=== PATIENT | female | born 1995 | race Caucasian/White ===

== ENCOUNTER 2018-10-16 05:01 | Inpatient (IN) ==
[2018-10-16] MEDS ORDERED: PEPCID IV PRN (05:09)
[2018-10-16] MEDS ORDERED: STADOL IV PRN (05:09)
[2018-10-16] MEDS ORDERED: REGLAN PO ONE (05:09)
[2018-10-16] MEDS ORDERED: TYLENOL PO PRN (05:09)
[2018-10-16] MEDS ORDERED: PEPCID PO PRN (05:09)
[2018-10-16] MEDS ORDERED: KEFZOL 1 GM/D5W 1 GM/50 ML IVPB IV PRN (05:09)
[2018-10-16] MEDS ORDERED: PEPCID PO ONE (05:09)
[2018-10-16] MEDS ORDERED: LR 500 ML IV ONE (05:09)
[2018-10-16] MEDS ORDERED: ZOFRAN IV PRN (05:09)
[2018-10-16] MEDS ORDERED: SODIUM CHLORIDE 0.9% INJ SCH (05:15)
[2018-10-16] MEDS ORDERED: PITOCIN 30 UNITS/NS 30 UNIT/500 ML IV.SOLN IV SCH ×2 (05:15→11:45)
[2018-10-16] MEDS: LR 1,000 ML IV SCH ×2 (05:50→08:37)
[2018-10-16 06:27] LABS: BASO# 0.02 X1000 (0.0-0.2); BASO% 0.2 % (0.0-0.8); EOS# 0.09 X1000 (0.0-0.7); HEMATOCRIT 32.5 % (37.0-47.0); HEMOGLOBIN 10.6 g/dL (12.0-16.0); IMM GRAN# 0.04 X1000 (0.0-0.04); IMM GRAN% 0.4 % (0.0-0.5); LYMPH# 2.18 X1000 (1.2-3.4); LYMPH% 23.6 % (20.5-51.1); MCH 29.8 PG (27-31); MCHC 32.6 g/dL (33-37); MCV 91.3 FL (81-99); MONO# 0.73 X1000 (0.11-0.59); MONO% 7.9 % (1.7-9.3); MPV 11.5 FL (7.4-10.4); NEUT# 6.19 X1000 (1.4-6.5); NEUT% 66.9 % (42.2-75.2); PLT 250 X1000 (130-400); RBC 3.56 XMIL (4.2-5.4); RDW 14.3 % (11.5-14.5); WBC 9.25 X1000 (4.8-10.8)
[2018-10-16] MEDS ORDERED: NAROPIN 0.2% INJ ONE (08:45)
[2018-10-16] MEDS ORDERED: FENTANYL-BUPIV-NS 2 MCG-0.1% 200 ML EPIDURAL SCH (09:00)
[2018-10-16] MEDS ORDERED: HYDROXYZINE IM PRN (11:31)
[2018-10-16] MEDS ORDERED: PITOCIN IM PRN (11:31)
[2018-10-16] MEDS ORDERED: BOOSTRIX VACCINE IM ONE (11:31)
[2018-10-16] MEDS ORDERED: XYLOCAINE-MPF 1% INJ PRN (11:31)
[2018-10-16] MEDS ORDERED: PERI MEDS (DERMOPLAST/NUPERCAINAL/TUCKS) MISC PRN (11:31)
[2018-10-16] MEDS ORDERED: ATARAX PO PRN (11:31)
[2018-10-16] MEDS ORDERED: M-M-R II VACCINE SUBQ ONE (11:31)
[2018-10-16] MEDS ORDERED: CYTOTEC PO PRN (11:31)
[2018-10-16] MEDS ORDERED: AMBIEN PO PRN (11:31)
[2018-10-16] MEDS ORDERED: BENADRYL PO PRN (11:31)
[2018-10-16] MEDS ORDERED: BENADRYL IV PRN (11:31)
[2018-10-16] MEDS ORDERED: PERCOCET-5 PO PRN (11:31)
[2018-10-16] MEDS ORDERED: PERCOCET-10 PO PRN (11:31)
[2018-10-16] MEDS ORDERED: PITOCIN 20 UNITS/NS 20 UNITS/1,000 ML IV.SOLN IV SCH (13:00)
--- NOTE | 2018-10-16 14:12 | OPERATIVE NOTE ---
PROCEDURE DATE: 10/16/2018 DELIVERY NOTE: Ms. Guzmán is a 23-year-old, 2, para 1, at 39 weeks and 3 days, care with Dr. Patterson, who presented for elective induction. The patient's cervix was 2 cm on arrival. She progressed to complete-complete and +3 with artificial rupture of membranes, clear fluid, and Pitocin augmentation under epidural anesthesia. She had a spontaneous vaginal delivery of an male over an intact perineum. Nuchal cord x1 was reduced at the perineum. The shoulders were delivered. The infant was bulb suctioned. The cord was clamped and cut, and he was handed to his mother. There were 9 and 9 Apgars, nursery. Placenta was manually extracted with trailing membranes. Hemostasis was noted. No fundal atony was observed and bleeding was resolved. There were no complications. Estimated blood loss 300 mL. Again, Apgars 9 and 9, nursery. cc: Alen Zheng MD
[2018-10-16] MEDS: PERICOLACE PO SCH (20:04)
[2018-10-17] MEDS: MOTRIN PO PRN (00:10)
[2018-10-17 06:31] LABS: BASO# 0.02 X1000 (0.0-0.2); BASO% 0.2 % (0.0-0.8); EOS# 0.11 X1000 (0.0-0.7); HEMATOCRIT 29.4 % (37.0-47.0); HEMOGLOBIN 9.4 g/dL (12.0-16.0); IMM GRAN# 0.03 X1000 (0.0-0.04); IMM GRAN% 0.3 % (0.0-0.5); LYMPH# 2.27 X1000 (1.2-3.4); LYMPH% 20.8 % (20.5-51.1); MCH 29.7 PG (27-31); MONO# 0.83 X1000 (0.11-0.59); MONO% 7.6 % (1.7-9.3); MPV 10.9 FL (7.4-10.4); NEUT# 7.64 X1000 (1.4-6.5); NEUT% 70.1 % (42.2-75.2); PLT 207 X1000 (130-400); RBC 3.16 XMIL (4.2-5.4); RDW 14.2 % (11.5-14.5)
--- NOTE | 2018-10-17 10:30 | OB/GYN PROGRESS NOTE ---
Progress Note OB - . Patient Problems: Current Active Problems Problem Status Onset Normal labor and delivery Acute Anemia of mother in , condition Acute Encounter for induction of labor Acute OB Progress Note: Vital Signs - 24 hr 10/16/18 10:25 10/16/18 11:30 10/16/18 11:40 Temperature 97.8 F 98 F Pulse Rate 97 H 91 H 72 Respiratory Rate 20 20 20 Blood Pressure 127/74 Blood Pressure [Left Arm] 127/74 123/73 O2 Sat by Pulse Oximetry 99 98 98 10/16/18 11:50 10/16/18 12:00 10/16/18 12:10 Temperature Pulse Rate 75 80 64 Respiratory Rate 20 20 18 Blood Pressure Blood Pressure [Left Arm] 120/74 132/81 118/58 O2 Sat by Pulse Oximetry 99 99 99 10/16/18 12:20 10/16/18 12:30 10/16/18 12:34 Temperature Pulse Rate 83 80 80 Respiratory Rate 20 20 Blood Pressure 125/76 Blood Pressure [Left Arm] 128/57 125/76 O2 Sat by Pulse Oximetry 100 98 100 10/16/18 17:15 10/16/18 20:03 10/17/18 00:10 Temperature 96.9 F L 96.8 F L 97.0 F L Pulse Rate 103 H 75 81 Respiratory Rate 20 18 18 Blood Pressure 127/77 123/74 113/72 Blood Pressure [Left Arm] O2 Sat by Pulse Oximetry 99 10/17/18 07:30 Temperature 97.1 F L Pulse Rate 65 Respiratory Rate 20 Blood Pressure 115/68 Blood Pressure [Left Arm] O2 Sat by Pulse Oximetry 100 Laboratory Results - last 24 hr 10/17/18 06:11 WBC 10.90 H RBC 3.16 L Hgb 9.4 L Hct 29.4 L MCV 93.0 MCH 29.7 MCHC 32.0 L RDW Std Deviation 14.2 Plt Count 207 MPV 10.9 H Immature Gran % (Auto) 0.3 Neut % (Auto) 70.1 Lymph % (Auto) 20.8 Hardin % (Auto) 7.6 Eos % (Auto) 1.0 Baso % (Auto) 0.2 Immature Gran # (Auto) 0.03 Neut # (Auto) 7.64 H Lymph # (Auto) 2.27 Hardin # (Auto) 0.83 H Eos # (Auto) 0.11 Baso # (Auto) 0.02 23-year-old, 2, para 1, at 39 weeks and 3 days, care with Dr. Patterson, who presented for elective induction and proceeded to of a male infant yesterday. ROS is negative. Exam VSS AF HEENT Nl Chest Nl resp effort CVS RRR Abd benign, fundus firm nontender Ext no CCE A/P 39 week delivered Anemia of care and discharge tomorrow reviewed. Informed consent for circumcision obtained.
[2018-10-17] MEDS ORDERED: PNEUMOVAX 23 IM ONE (18:00)
[2018-10-18] MEDS: MOTRIN PO PRN (00:31)
[2018-10-18] MEDS: PERICOLACE PO SCH (06:06)
[2018-10-18 07:58] VITALS: BP 129/88
--- NOTE | 2018-10-18 10:58 | OB/GYN PROGRESS NOTE ---
Progress Note OB - . Patient Problems: Current Active Problems Problem Status Onset Normal labor and delivery Acute Anemia of mother in , condition Acute Encounter for induction of labor Acute OB Progress Note: Vital Signs - 24 hr 10/17/18 12:43 10/17/18 15:45 10/17/18 22:05 Temperature 97.1 F L 97.6 F 96.9 F L Pulse Rate 79 66 65 Respiratory Rate 16 20 18 Blood Pressure 123/79 139/85 130/85 O2 Sat by Pulse Oximetry 99 100 10/18/18 07:35 Temperature 97.5 F L Pulse Rate 66 Respiratory Rate 16 Blood Pressure 129/88 O2 Sat by Pulse Oximetry 96 Samantha feels well PPD#2 with neg ROS but for gas discomfort and local soreness at SAMARA insertion site. She is breast and bottle feeding. 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
--- NOTE | 2018-10-18 19:10 | DISCHARGE SUMMARY ---
ADMISSION DATE: 10/16/2018 DISCHARGE DATE: 10/18/2018 ADMITTING DIAGNOSIS: Thirty-nine week and 3 day desiring elective induction of labor. FINAL DISCHARGE DIAGNOSIS: 1. Thirty-nine week 3 day , delivered, without complication. 2. Viable male . 3. Desire for Depo-Provera contraception. 4. Anemia of . DISCHARGE MEDICATIONS: vitamins once daily, ferrous sulfate 1 tablet daily #30 with 5 refills, ibuprofen 800 mg 1 every 8 hours as needed for pain #30 with 1 refill. HPI: Samantha is now a 23-year-old 2, para 2-0-0-2 white female, admitted for elective induction at 39 weeks and 3 days. Past medical, social, family and histories are unremarkable as listed on the record. Admitting labs and vital signs were unremarkable other than anemia of with hemoglobin 10.6. RPR was negative. HOSPITAL COURSE: Samantha responded to oxytocin infusion and proceeded along a normal labor curve to an uncomplicated spontaneous vaginal delivery over an intact perineum of a viable male . course was normal with hemoglobin 9.4, asymptomatic, and alternating breast and bottle feeding. Her son underwent uncomplicated circumcision on day 1. DISPOSITION: On day 2 Samantha was doing well and ready for discharge with normal lochia. Good response to ibuprofen for relief of discomfort at the lumbar epidural insertion site and no fever, chills, extremity swelling, or depressed mood. She verbalized good understanding of all the discharge precautions, instructions, limitations, medications. Return in 6 weeks or as needed for heavy vaginal bleeding, unrelieved pain, fever, breast soreness or depression. She will call for a 6-week checkup and inquire about receiving Depo-Provera prior to that time. Otherwise, she will observe pelvic rest and have condom contraception on hand. cc: Jaret Patterson III, MD
== END 2018-10-18 11:50 | disposition home or self-care (01) | DRG 807 ==
LOC: P.LD 05:01
PROVIDERS: ADMIT Obstetrics & Gynecology; ATTEND Obstetrics & Gynecology
CPT/HCPCS: 85025; 86592; 90732; A9270; J0595; J2405; J2590; J2795; J7120